=== PATIENT | female | born 1975 | race Caucasian/White ===

== ENCOUNTER 2020-10-28 19:46 | Inpatient (IN) | payer MEDICAID, OTHER, SELFPAY ==
[2020-10-28] MEDS ORDERED: Ondansetron PF 4 MG/2 ML Vial ONE (19:52)
[2020-10-29 05:11] LABS: Hemoglobin 11.8 g/dL (12.0-15.5); Mean Corpuscular Volume 78.6 fl (81.6-98.3); RBC Distribution Width 17.3 % (11.5-14.5); White Blood Cell (WBC) Count 7.2 10x3/uL (3.5-10.5)
[2020-10-29 05:12] LABS: %Basophils 0.6 % (0.0-2.0); %Eosinophils 3.2 % (0.0-6.0); %Lymphocytes 43.9 % (18.0-47.0); %Monocytes 8.3 % (0.0-10.0); %Neutrophils 43.6 % (40.0-75.0); Platelet Count 263 10x3/uL (150-450)
[2020-10-29] MEDS ORDERED: Lorazepam 2 MG/ML VIAL ONE (05:41)
[2020-10-29 08:22] LABS: Carbon Dioxide 19 mmol/L (22-29); Chloride 105 mmol/L (98-107); Potassium 3.5 mmol/L (3.5-5.1); Sodium 140 mmol/L (136-145)
[2020-10-29 08:23] LABS: Albumin 4.3 g/dL (3.5-5.0); BUN (Urea Nitrogen) 8 mg/dL (7.0-18.7); Bilirubin, Total 0.2 mg/dL (0.2-1.2); Calc. Creatinine Clearance 0 mL/min (70-130); Calcium 8.9 mg/dL (7.8-10.44); Globulin 3.6 g/dL (2.4-3.5); Glucose 102 mg/dL (70-105); Protein, Total 7.9 g/dL (6.0-8.3)
[2020-10-29 08:24] LABS: ALT (SGPT) 42 U/L (8-55); AST (SGOT) 39 U/L (5-34); Alcohol 282 mg/dL (Less than 10); Alkaline Phosphatase 91 U/L (40-110)
[2020-10-29 08:25] LABS: Anion Gap 20 mmol/L (10-20)
[2020-10-29 08:26] LABS: Clarity Clear (Clear); Leukocyte Negative (Negative)
[2020-10-29 08:27] LABS: Bilirubin Negative (Negative); Blood, Urine Negative (Negative); Glucose, Urine (Dipstick) Negative (Negative); Ketone, Urine Negative (Negative); Nitrite Negative (Negative); Protein, Urine (Dipstick) Negative (Neg-Trace); Urobilinogen Normal mg/dL (Less than 2)
[2020-10-29 08:28] LABS: Amphetamine Not Detected (NotDetected); Barbiturates Screen Not Detected (NotDetected); Benzodiazepine Screen Not Detected (NotDetected); Cocaine Metabolite Screen Not Detected (NotDetected); Methadone Not Detected (NotDetected); Methamphetamine Not Detected (NotDetected); Opiate Screen Not Detected (NotDetected); Oxycodone Screen Not Detected (NotDetected); Phencyclidine (PCP) Not Detected (NotDetected); THC/Cannabinoid Screen Not Detected (NotDetected); Tricyclic Screen Not Detected (NotDetected)
[2020-10-29 08:31] LABS: Pregnancy Test - Urine (BHCG) Negative (Negative); Pregu Control Background? CLEAR/WHITE (CLR/WHITE); Pregu Control Bar Appear? YES (CONTROL BAR)
[2020-10-29 08:37] LABS: #Eosinphils 0.2 10x3/uL (0.0-0.5); #Monocytes 0.6 10x3/uL (0.0-1.1); #Neutrophils 3.1 10x3/uL (1.5-8.4)
[2020-10-29 08:39] LABS: Acetaminophen Less than 6.0 mcg/mL (10.0-30.0); Alcohol 282 mg/dL (Less than 10); Salicylate Less than 8.0 mg/dL (15.0-30.0)
[2020-10-29] MEDS ORDERED: Multivitamins, Adult 10 ML, Thiamine HCl 100 MG, Folic Acid 1 MG in Dextrose 5 %-0.45 %... IV SCH (09:00)
[2020-10-29] MEDS ORDERED: Ondansetron PF 4 MG/2 ML Vial IVP PRN (10:52)
[2020-10-29] MEDS ORDERED: Senokot S 8.6-50 MG TAB PO PRN (10:52)
[2020-10-29] MEDS ORDERED: Acetaminophen 325 MG TAB PO PRN (10:52)
[2020-10-29] MEDS ORDERED: hydrALAZINE 20 MG/ML VIAL SLOW IVP PRN ×2 (10:57→18:30)
[2020-10-29 11:39] VITALS: BMI 31.6
[2020-10-29] MEDS: Sodium Chloride 0.9% 1,000 ML IV SCH ×2 (12:59→21:06)
[2020-10-29] MEDS: Lorazepam 2 MG/ML VIAL SLOW IVP PRN ×2 (12:59→21:06)
[2020-10-29 19:03] LABS: SARS-CoV-2 PCR by NAA Not Detected (NotDetected)
[2020-10-30 04:14] LABS: #Eosinphils 0.1 10x3/uL (0.0-0.5); #Monocytes 0.5 10x3/uL (0.0-1.1); #Neutrophils 3.5 10x3/uL (1.5-8.4); %Basophils 0.3 % (0.0-2.0); %Eosinophils 2.2 % (0.0-6.0); %Lymphocytes 28.1 % (18.0-47.0); %Monocytes 9.2 % (0.0-10.0); %Neutrophils 59.9 % (40.0-75.0); Hemoglobin 9.6 g/dL (12.0-15.5); Mean Corpuscular HGB CONC 30.1 g/dL (32.0-36.0); Mean Corpuscular Hemoglobin 23.9 pg (27.0-33.0); Mean Corpuscular Volume 79.6 fl (81.6-98.3); Mean Platelet Volume 10.7 fl (7.4-10.4); Platelet Count 211 10x3/uL (150-450); RBC Distribution Width 17.2 % (11.5-14.5); Red Blood Cell (RBC) Count 4.01 10x6/uL (3.90-5.03); White Blood Cell (WBC) Count 5.9 10x3/uL (3.5-10.5)
[2020-10-30 04:34] LABS: ALT (SGPT) 25 U/L (8-55); AST (SGOT) 22 U/L (5-34); Albumin 3.4 g/dL (3.5-5.0); Alkaline Phosphatase 81 U/L (40-110); Anion Gap 10 mmol/L (10-20); BUN (Urea Nitrogen) 9 mg/dL (7.0-18.7); Bilirubin, Total 0.3 mg/dL (0.2-1.2); Calc. Creatinine Clearance 132 mL/min (70-130); Calcium 8.1 mg/dL (7.8-10.44); Carbon Dioxide 24 mmol/L (22-29); Chloride 110 mmol/L (98-107); Globulin 2.7 g/dL (2.4-3.5); Glucose 93 mg/dL (70-105); Potassium 3.8 mmol/L (3.5-5.1); Protein, Total 6.1 g/dL (6.0-8.3); Sodium 140 mmol/L (136-145)
[2020-10-30] MEDS: Lorazepam 2 MG/ML VIAL SLOW IVP PRN (09:31)
[2020-10-30] MEDS: Enoxaparin Sodium 40 MG/0.4 ML SYRINGE SC SCH (09:32)
[2020-10-30] MEDS: Sodium Chloride 0.9% 1,000 ML IV SCH (09:33)
[2020-10-30] MEDS ORDERED: Triamterene/Hydrochlorothiazide 37.5 mg/25 mg Tablet PO SCH (12:00)
[2020-10-30] MEDS ORDERED: Calcium Carbonate 500 MG ChewTAB PO PRN (12:26)
[2020-10-30] MEDS ORDERED: Melatonin 3 MG TAB PO PRN (17:41)
[2020-10-30] MEDS ORDERED: DULoxetine 30 MG CAP PO SCH (21:00)
[2020-10-30] MEDS: Famotidine 20 MG TAB PO SCH (21:19)
[2020-10-30] MEDS ORDERED: Lorazepam 1 MG TAB PO SCH (22:00)
[2020-10-31 05:02] LABS: #Eosinphils 0.2 10x3/uL (0.0-0.5); #Monocytes 0.6 10x3/uL (0.0-1.1); #Neutrophils 3.4 10x3/uL (1.5-8.4); %Basophils 0.5 % (0.0-2.0); %Lymphocytes 25.1 % (18.0-47.0); %Monocytes 9.8 % (0.0-10.0); %Neutrophils 61.2 % (40.0-75.0); Hemoglobin 10.5 g/dL (12.0-15.5); Mean Corpuscular HGB CONC 30.3 g/dL (32.0-36.0); Mean Corpuscular Hemoglobin 23.4 pg (27.0-33.0); Mean Corpuscular Volume 77.1 fl (81.6-98.3); Mean Platelet Volume 10.8 fl (7.4-10.4); Platelet Count 231 10x3/uL (150-450); RBC Distribution Width 17.6 % (11.5-14.5); Red Blood Cell (RBC) Count 4.49 10x6/uL (3.90-5.03); White Blood Cell (WBC) Count 5.6 10x3/uL (3.5-10.5)
[2020-10-31 05:07] LABS: Anion Gap 13 mmol/L (10-20)
[2020-10-31 05:21] LABS: BUN (Urea Nitrogen) 7 mg/dL (7.0-18.7); Calc. Creatinine Clearance 127 mL/min (70-130); Calcium 9.8 mg/dL (7.8-10.44); Carbon Dioxide 25 mmol/L (22-29); Chloride 103 mmol/L (98-107); Glucose 100 mg/dL (70-105); Potassium 3.6 mmol/L (3.5-5.1); Sodium 137 mmol/L (136-145)
[2020-10-31] MEDS: Enoxaparin Sodium 40 MG/0.4 ML SYRINGE SC SCH (08:45)
[2020-10-31] MEDS: Famotidine 20 MG TAB PO SCH (08:45)
[2020-10-31] MEDS ORDERED: Metoprolol Tartrate 50 MG TAB PO SCH (09:00)
[2020-10-31] MEDS ORDERED: Triamterene/Hydrochlorothiazide 37.5 mg/25 mg Tablet PO SCH (09:00)
[2020-10-31] MEDS ORDERED: metroNIDAZOLE 500 MG TAB PO SCH (09:00)
[2020-10-31 17:00] VITALS: BP 169/90; TEMP 98.7
== END 2020-10-31 16:50 | disposition home or self-care (01) | DRG 918 ==
LOC: CSHERS 19:46 → CSHTELE 10-29 11:36 → OBSVTOIN 10-30 13:31
PROVIDERS: ADMIT Internal Medicine; ATTEND Family Medicine
DX: T43.211A Poisoning by selective serotonin and norepinephrine reuptake inhibitors, accidental (unintentional), initial encounter (principal); F33.2 Major depressive disorder, recurrent severe without psychotic features; F10.10 Alcohol abuse, uncomplicated; F41.9 Anxiety disorder, unspecified; I10 Essential (primary) hypertension; R00.0 Tachycardia, unspecified; Y90.8 Blood alcohol level of 240 mg/100 ml or more; E66.9 Obesity, unspecified; Z68.31 Body mass index [BMI] 31.0-31.9, adult; D50.9 Iron deficiency anemia, unspecified; R40.0 Somnolence
CPT/HCPCS: 51701; 80048; 80053; 80306; 80307; 81003; 81025; 82550; 83605; 84443; 85025; 87635; 93005; 93010; 96365; 96366; 96372; 96375; 96376; G0378; J0360; J1650; J2060; J2405; J3411; J7042; U0003; U0005